=== PATIENT | female | born 1985 | race Caucasian/White ===

== ENCOUNTER 2020-12-06 06:28 | Emergency (ER) | payer MEDICAID ==
[~2020-12-06] VITALS: Ht 167.6 cm; Wt 90.7 kg
--- NOTE | 2020-12-06 06:37 | NUR ---
pt bibra c/o anxiety s/p taking unknown drug. Pt having difficulty answering questions, hyperverbal and crying. Pt attached to monitor and pox. MD at bedside for eval. Pt given blanket and call light within reach
[2020-12-06] MEDS ORDERED: LORAZEPAM 1 MG TABLET ONE (06:38)
--- NOTE | 2020-12-06 06:45 | NUR ---
REFUSED TO GIVE URINE SAMPLE. STATED SHE CAN NOT AT THE MOMENT.
[2020-12-06 06:59] LABS: BASOPHILS % (AUTO) 0.2 % (0.0-2.0); EOSINOPHILS % (AUTO) 1.2 % (0.0-6.0); HEMATOCRIT 36 % (33-45); HEMOGLOBIN 12.4 g/dL (11.5-14.8); LYMPHOCYTES # (AUTO) 2.1 K/uL (0.8-4.8); LYMPHOCYTES % (AUTO) 17.8 % (20.0-44.0); MEAN CORPUSCULAR HGB CONC 34 g/dl (31.0-36.0); MEAN CORPUSCULAR VOLUME 84 fL (82-100); MONOCYTES # (AUTO) 1.1 K/uL (0.1-1.30); MONOCYTES % (AUTO) 9.4 % (2.0-12.0); NEUTROPHILS # (AUTO) 8.5 K/uL (1.8-8.9); NEUTROPHILS % (AUTO) 71.4 % (43.0-81.0); PLATELET COUNT (AUTO) 250 K/uL (150-450); RED BLOOD CELL COUNT(AUTO) 4.34 MIL/uL (4.0-5.2); WHITE BLOOD COUNT (AUTO) 11.9 K/uL (4.3-11.0)
[2020-12-06] MEDS ORDERED: LORAZEPAM 1 MG TABLET PO ONE (07:00)
[2020-12-06 07:23] LABS: CALCIUM, SERUM 8.4 mg/dL (8.5-10.1); CARBON DIOXIDE 24 mmol/L (21-32); CHLORIDE 104 mmol/L (98-107); CREATININE 0.7 mg/dL (0.6-1.3); GLUCOSE 100 mg/dL (74-106); POTASSIUM 3.4 mmol/L (3.5-5.1); SODIUM SERUM 139 mmol/L (136-145); UREA NITROGEN, BLOOD 18 mg/dL (7-18)
[2020-12-06 07:28] LABS: ALANINE AMINOTRANSFERASE 27 U/L (12-78); ALBUMIN 3.4 g/dL (3.4-5.0); ALKALINE PHOSPHATASE 72 U/L (46-116); ASPARTATE AMINOTRANSFERASE 11 U/L (15-37); BILIRUBIN,DIRECT 0.2 mg/dL (0.0-0.2); BILIRUBIN,TOTAL 0.9 mg/dL (0.2-1.0); TOTAL PROTEIN, SERUM 6.6 g/dL (6.4-8.2)
[2020-12-06 07:33] LABS: ACETAMINOPHEN < 10 ug/ml (10-30); ALCOHOL, BLOOD < 3 mg/dL (0-0)
--- NOTE | 2020-12-06 07:53 | NUR ---
Note juancarlos in ED - 12/06/20 at 0754 by RENATO THE PATIENT IS ALERT AND ORIENTED X3. DENIES PAIN. IN ROOM AIR AND DENIES SOB. RESPIRATION REGULAR AND UNLABORED. WILL CONTINUE TO MONITOR THE PATIENT.
[2020-12-06] MEDS ORDERED: NALO4SPR NS (08:50)
[2020-12-06 11:05] LABS: BILIRUBIN,URINE SMALL (NEGATIVE); COLOR,URINE YELLOW (YELLOW); LEUKOCYTE ESTERASE ,URINE Negative (NEGATIVE); NITRITE, URINE Negative (NEGATIVE); PROTEIN,URINE Negative (NEGATIVE); UGLUCOSE Negative (NEGATIVE)
[2020-12-06 11:17] LABS: RBC,URINE 0-2 /HPF (0-2); WBC,URINE 0-2 /HPF (0-3)
[2020-12-06 11:18] LABS: BACTERIA,URINE Few /HPF (None Seen); MUCUS,URINE Moderate /LPF (None Seen); URINE AMORPHOUS URATE Few /HPF (None Seen)
--- NOTE | 2020-12-06 12:43 | NUR ---
PT WAS BEING DISCHARGED. PT VERBALIZED THAT SHE IS SUICIDAL WITH PLAN TO OD ON DRUGS. PT WANTS TO BE ADMITTED VOLUNTARILY TO PSYCH.
--- NOTE | 2020-12-06 16:00 | NUR ---
LEGAL DEPARTMENT MANAGER AT BEDSIDE
--- NOTE | 2020-12-06 16:12 | NUR ---
"SS consult: SS consult requested for drug abuse. possible homelessness and SI. The pt. is a 35 year old female. Pt. has Hx. of opiod abuse amongst other drugs. The p. is awake, lying in bed and rousable by verbal cues. Pt. was not compliant with interview. SW attempted to explored pt.'s SI thoughts, mental health HX., Hx. of drug use, living situation. Pt. looked away and did not cooperate. Pt. refused to sign homeless waiver and SW provided pt. with usp resources and homeless resources. SW provided pt. with addiction resources and for medication assisted treatment for opiod abuse: [facility]: [address] [place] [address] Intake hours: 5:45am-9:00am, walk-ins Wednesday, Wednesday, [facility]: [address] [place] [address] Intake hours: 5:45am-12:30pm, Wednesday and [facility]: [address] [place] [id number] Intake hours: 8:00am-2:00pm, Wednesday through Wednesday SW discussed theabove stated information with Dr. Schuyler Vu who expressed understanding and is agreeable to plan. Homelss reosuces and addiction resouces provided are: Year-round shelters: [facility] [place] [address] [place] [address] ; [facility] [place] [address] [place] [address]; [facility] [id number] [facility] [address] Winter Shelters: Kishor Rodriges Provider: [facility] [place] Address: [address] [facility] CenterJenn [place]North [place], [address] # of Beds: 47 Population Served: [facility] 6 | [facility] Jessica Blankenship [place] Provider: [facility] Address: [address], [address] # of Beds: 66 Population Served: [facility] Zulema [place] Provider: [facility] Address: [address] [facility], [address] # of Beds: 56 Population Served: Fabricio Jorge Rodriges Provider: /Ms. Sheridan[facility] Address: [address] [facility], [address] # of Beds: 49 Population Served: [facility] 8 | [facility] Provider: [facility] Serve Address: [address] [facility], [address] # of Beds: 37 Population Served: [facility] Hygiene: [facility]: [address] [facility] ; [facility] [address] [facility] ; [facility] [address] [facility] . Food Resources: [facility] [employer] [facility] at [facility]- [address] [facility]; Meet Each Need with [facility]ign[facility] ([facility]) [address] [facility]; [facility] [address] [facility]; [facility] [address] [facility]. Mental Health resources provided: [facility] [address] [place], [place] [id number] ; [facility] [employer] [address] [facility] [address], [place] [address] ; Tanja Huynh [facility] [address] [place] [address] ; [facility] [address] [place], [place] [phone] Healthcare Clinics: [facility] [address] [facility], [address] [place]. [place] ; [facility], [facility] [address] [facility] [address] [place] [address]; [facility] [address] [place] [address] [phone]) [phone] Counseling--[facility] [address] [place], [place] [address] (Specializes in in-depth psychotherapy for emotional distress: anxiety, depression, interpersonal conflicts, life transitions, childhood abuse) [facility]ance Center [address] [place] [address] (Assist with solving problem marital difficulties, separation & divorce, aging parents, & grief, chronic & terminal illness) [facility] [address] [place] [address] (Deal with loss & grief, anxiety, marital difficulties) Homebound/Mental Health Services [address] [facility] [address] [place] [address] (Provide in-home mental services to people who are incapable of leaving their homes) [facility] Senior Service/Resource Center [address] [place] [address] [facility] [address] [place] [address] PSYCHIATRIC OUTPATIENT SERVICES [facility] Partial Hospitalization and Intensive Outpatient Program (Managed Care and [place] Only)[address] [facility], [facility] [phone] [facility] Partial Hospitalization and Outpatient Lzjbvby[address] [facility] [address] [place], [place] [phone] [facility] Center Tlp[address] [facility] [address] [place], [place] [phone] [facility] Partial Hospitalization and Outpatient [id number] [place], [phone] Substance Abuse resources provided included: [facility] Substance Abuse Self-Helpline (SAS) ; [facility] [address] [facility] [phone] ; [facility] [address] [facility] [address] ; [facility] Rehabilitation Program [address] [place] [address] ; [facility]ically [facility] [address] [facility] [address] ; [facility] [address] [facility] [address] ; [facility] [address] [facility] [phone] ; [facility] Substance Abuse Helpline(SAS)[facility] ; [facility] ; [facility] [place]; [facility] [place]; [facility] [place]; [facility] Oscar [place]; [facility] [place]; [facility] [place] [place]; [facility]'s [employer] [place]; Alcoholics Anonymous -SFV; Ry-Prsj-Wwxtuyg ; Marijuana Anonymous -SFV; Narcotics Anonymous www.na.org;"
--- NOTE | 2020-12-06 16:20 | NUR ---
Plan: CATIE faxed referrals to [facility] [[facility] [place] [address] FAX:[phone]] for inpatient psychiatric treatment.
--- NOTE | 2020-12-06 17:00 | NUR ---
PT IN BED RESTING WITH HER EYES CLOSE. NAD NOTED.
--- NOTE | 2020-12-06 17:35 | NUR ---
PT WAS PROVIDED WITH A MEAL.
--- NOTE | 2020-12-06 19:05 | NUR ---
PT IN BED. NOT IN ANY DISTRESS.
--- NOTE | 2020-12-06 22:18 | NUR ---
CLINICAL AND FACESHEET FAXED TO [facility] FOR VOLUNTARY PSYCH ADMISSION.
--- NOTE | 2020-12-06 23:39 | NUR ---
CALLED [facility] TO F/UAUGUST CLINICAL IS STILL UNDER REVIEW AT THIS TIME.
--- NOTE | 2020-12-07 00:44 | NUR ---
PT ACCEPTED AT [facility]. PER ART FROM INTAKE CALL FOR REPORT AFTER 08:30. ROOM NUMBER AND ACCEPTING MD WILL BE PROVIDED DURING REPORT.
--- NOTE | 2020-12-07 03:19 | NUR ---
RESTING COMFORTABLY. VSS.
--- NOTE | 2020-12-07 07:25 | NUR ---
ASSESED PT ON BED ASLEEP EASILY AROUSABLE, NOT IN RESPIRATORY DISTRESS, V/S STABLE, KEPT RESTED AND COMFORTABLE. WILL CONTINUE TO MONITOR.
--- NOTE | 2020-12-07 08:34 | NUR ---
[facility] CALLED ETA 60 MINS PER PRIYANKA
--- NOTE | 2020-12-07 08:53 | NUR ---
report given to thomas walton from [facility].
--- NOTE | 2020-12-07 09:13 | NUR ---
PER PT SHE IS NOT SUICIDAL/HOMICIDAL AND WANTS TO BE DISCHARGED HOME "I WILL GO BACK TO MY M[facility]." AWARE.
[2020-12-07 09:19] VITALS: BP 124/81
--- NOTE | 2020-12-07 09:19 | NUR ---
Patient discharged to home in stable condition. Written and verbal after care instructions given. Patient verbalizes understanding of instruction.
== END 2020-12-07 09:20 | disposition home or self-care (01) ==
LOC: ER 06:28
DX: T65.91XA Toxic effect of unspecified substance, accidental (unintentional), initial encounter (principal); F41.9 Anxiety disorder, unspecified; Y92.89 Other specified places as the place of occurrence of the external cause; Z59.0 Homelessness; F19.10 Other psychoactive substance abuse, uncomplicated; Z82.49 Family history of ischemic heart disease and other diseases of the circulatory system; Z20.822 Contact with and (suspected) exposure to COVID-19; R45.851 Suicidal ideations; R03.0 Elevated blood-pressure reading, without diagnosis of hypertension; R94.31 Abnormal electrocardiogram [ECG] [EKG]; F11.10 Opioid abuse, uncomplicated
CPT/HCPCS: 36415; 71045; 80048; 80076; 80143; 80307; 80320; 81001; 84703; 85025; 87426; 93005; 99285; C9803; G0480

== ENCOUNTER → 2021-11-11 | Emergency (ER) | payer MEDICAID, OTHER ==
[~2021-11-11] VITALS: Ht 167.6 cm; Wt 81.6 kg
[~2021-11-11] MED LIST: IBUPROFEN 600 MG TABLET ONE; IBUPROFEN 600 MG TABLET PO ONE; NALO4SPR NS
[2021-11-11 14:41] VITALS: BP 112/85
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
--- NOTE | 2021-11-11 15:06 | NUR ---
Patient discharged to home in stable condition. Written and verbal after care instructions given. Patient verbalizes understanding of instruction.
== END ==
LOC: ER 14:45
DX: F17.200 Nicotine dependence, unspecified, uncomplicated; Z88.8 Allergy status to other drugs, medicaments and biological substances; Z59.00 Homelessness unspecified; Z79.899 Other long term (current) drug therapy
CPT/HCPCS: 99283; A6253